=== PATIENT | female | born 1935 | race Caucasian/White ===

== ENCOUNTER 2021-08-23 18:53 | Inpatient (IN) | payer MEDICARE, MEDICAID ==
[~2021-08-23] VITALS: Ht 154.9 cm; Wt 90.9 kg
[2021-08-23 19:57] LABS: BASOPHILS % 0.8 % (0.0-2.0); EOSINOPHILS % 2.1 % (0.0-5.0); HEMATOCRIT. 36.5 % (36.0-48.0); HEMOGLOBIN. 11.9 g/dL (12.0-16.0); LYMPHOCYTES % 27.9 % (20.0-50.0); MEAN CORPUSCULAR HEMOGLOBIN 29.5 pg (28.0-32.0); MEAN CORPUSCULAR VOLUME 90.2 fL (81.0-99.0); MEAN PLATELET VOLUME 11.5 fl (7.4-10.4); NEUTROPHILS % 62.2 % (40.0-76.0); PLATELET 120 x1000/uL (130-400); RED BLOOD CELL COUNT 4.04 mill/uL (4.2-5.4); RED CELL DISTRIBUTION WIDTH 15.6 % (11.6-14.6)
[2021-08-23 20:00] LABS: CHLORIDE 112 mEq/L (98-107)
[2021-08-23 20:01] LABS: PROTHROMBIN TIME 10.3 sec (9.6-11.0)
[2021-08-23 20:03] LABS: ETHANOL BLOOD < 10 mg/dL
[2021-08-23 20:06] LABS: LDL CHOLESTEROL 109 mg/dL (5-100)
[2021-08-23 20:34] LABS: CLARITY URINE CLOUDY (CLEAR); COLOR URINE YELLOW (YELLOW); KETONES URINE TRACE (NEGATIVE); LEUKOCYTE ESTERASE URINE 3+ (NEGATIVE); NITRITE URINE NEGATIVE (NEGATIVE); OCCULT BLOOD URINE NEGATIVE (NEGATIVE); PROTEIN URINE 1+ (NEGATIVE); SPECIFIC GRAVITY URINE 1.023 (1.005-1.030)
[2021-08-23 20:49] LABS: *AMPHETAMINES SCREEN URINE NEGATIVE (NEGATIVE)
[2021-08-23 20:50] LABS: *BARBITURATES SCREEN URINE NEGATIVE (NEGATIVE); *BENZODIAZEPINES SCREEN URINE NEGATIVE (NEGATIVE); *COCAINE SCREEN URINE NEGATIVE (NEGATIVE); CANNABINOID URINE SCREEN NEGATIVE (NEGATIVE); METHADONE URINE SCREEN NEGATIVE (NEGATIVE); OPIATES URINE SCREEN NEGATIVE (NEGATIVE); PHENCYCLIDINE URINE SCREEN NEGATIVE (NEGATIVE)
[2021-08-23] MEDS ORDERED: CEFTRIAXONE 1 G PREMIX 50 ML IV ONE (21:15)
[2021-08-24] VITALS (7 sets, daily range): BP systolic 138–152; BP diastolic 37–52
[2021-08-24] MEDS ORDERED: OMEP10CA5 MT (01:27)
[2021-08-24] MEDS ORDERED: ACETAMINOPHEN 650MG/20.3ML UDC GT PRN (05:45)
[2021-08-24] MEDS ORDERED: LORAZEPAM 2MG/ML CPJ IV PRN (05:45)
[2021-08-24] MEDS ORDERED: MORPHINE SULFATE 2 MG/ML CPJ (NOT FOR IM USE) IV PRN (05:45)
[2021-08-24] MEDS ORDERED: CEFTRIAXONE 1 G PREMIX 50 ML IV SCH (05:45)
[2021-08-24] MEDS ORDERED: HYDROCODONE/ACETAMINOPHEN 5/325MG TABLET PO PRN (05:45)
[2021-08-24] MEDS ORDERED: ONDANSETRON HCL 4MG/2ML INJ IV PRN (05:45)
[2021-08-24] MEDS ORDERED: NALOXONE HCL 0.4MG/ML VIAL IV PRN (06:00)
[2021-08-24] MEDS: THIAMINE HCL 100MG TABLET PO SCH (08:32)
[2021-08-24] MEDS: ASPIRIN 81MG EC TABLET PO SCH (08:33)
[2021-08-24] MEDS: FOLIC ACID 1MG TABLET PO SCH (08:33)
[2021-08-24] MEDS: ENOXAPARIN 30MG/0.3ML SYR SUBCUT SCH (08:34)
[2021-08-24] MEDS ORDERED: ENAL10TA19 MT (11:32)
[2021-08-24] MEDS: ENALAPRIL 5MG TABLET PO SCH (13:25)
[2021-08-24] MEDS: HYDRALAZINE HCL 25MG TABLET PO SCH ×2 (14:45→22:04)
[2021-08-24 20:30] LABS: T4 FREE 1.05 ng/dL (0.76-1.46)
[2021-08-24] MEDS ORDERED: CEFTRIAXONE 1,000 MG in DEXTROSE 5% WATER 50 ML IV SCH (21:00)
[2021-08-25] VITALS (8 sets, daily range): BP systolic 123–171; BP diastolic 45–62
[2021-08-25] MEDS: HYDRALAZINE HCL 25MG TABLET PO SCH ×2 (05:49→14:00)
[2021-08-25 06:32] LABS: CHLORIDE 112 mEq/L (98-107)
[2021-08-25 06:37] LABS: BASOPHILS % 0.3 % (0.0-2.0); EOSINOPHILS % 2.2 % (0.0-5.0); HEMATOCRIT. 35.9 % (36.0-48.0); HEMOGLOBIN. 11.9 g/dL (12.0-16.0); LYMPHOCYTES % 30.4 % (20.0-50.0); MEAN CORPUSCULAR HEMOGLOBIN 29.9 pg (28.0-32.0); MEAN CORPUSCULAR VOLUME 90.1 fL (81.0-99.0); MEAN PLATELET VOLUME 11.5 fl (7.4-10.4); MONOCYTES % 6.7 % (2.0-8.0); NEUTROPHILS % 60.4 % (40.0-76.0); PLATELET 106 x1000/uL (130-400); RED BLOOD CELL COUNT 3.99 mill/uL (4.2-5.4); RED CELL DISTRIBUTION WIDTH 15.6 % (11.6-14.6)
[2021-08-25 06:39] LABS: PHOSPHORUS 3.2 mg/dL (2.5-4.9)
[2021-08-25 07:18] LABS: VITAMIN B12 SERUM 624 pg/mL (211-911)
[2021-08-25] MEDS: ASPIRIN 81MG EC TABLET PO SCH (09:35)
[2021-08-25] MEDS: THIAMINE HCL 100MG TABLET PO SCH (09:35)
[2021-08-25] MEDS: FOLIC ACID 1MG TABLET PO SCH (09:35)
[2021-08-25] MEDS: ENOXAPARIN 30MG/0.3ML SYR SUBCUT SCH (09:36)
[2021-08-25] MEDS: ENALAPRIL 5MG TABLET PO SCH (09:37)
[2021-08-25] MEDS ORDERED: LEVO500T89 MT (17:23)
== END 2021-08-25 20:50 | disposition home or self-care (01) | DRG 74 ==
LOC: ER 18:53 → 7EST 22:19 → EDBEDREQ 22:24 → EDBEDREQTM 22:24 → EDBEDREQSVC 22:24 → ENRESERV 23:51
PROVIDERS: ADMIT Internal Medicine Nephrology; ATTEND Internal Medicine Nephrology
DX: G90.8 Other disorders of autonomic nervous system (principal); G45.9 Transient cerebral ischemic attack, unspecified; N39.0 Urinary tract infection, site not specified; E44.1 Mild protein-calorie malnutrition; N17.9 Acute kidney failure, unspecified; D69.6 Thrombocytopenia, unspecified; E66.9 Obesity, unspecified; R91.8 Other nonspecific abnormal finding of lung field; R00.1 Bradycardia, unspecified; E87.8 Other disorders of electrolyte and fluid balance, not elsewhere classified; E78.5 Hyperlipidemia, unspecified; I10 Essential (primary) hypertension; Z68.37 Body mass index [BMI] 37.0-37.9, adult; Z79.899 Other long term (current) drug therapy; Z71.3 Dietary counseling and surveillance; D64.9 Anemia, unspecified
CPT/HCPCS: 36415; 70551; 71045; 71250; 80048; 80053; 80305; 80320; 81003; 82607; 83721; 83735; 84100; 84439; 84443; 84481; 84484; 85025; 93306; 99285; J0696; J1650; J7040; J7060; G0480